=== PATIENT | male | born 1990 | race Caucasian/White ===

== ENCOUNTER → 2016-07-19 | Outpatient (CLI) | payer OTHER | LOC: RAD 10:13 | PROVIDERS: ATTEND Family Medicine | DX: R10.9 Unspecified abdominal pain (principal) | CPT/HCPCS: 74176 ==

== ENCOUNTER 2017-03-15 04:21 | Emergency (ER) | payer SELFPAY ==
[2017-03-15] MEDS ORDERED: NORMAL SALINE 1000 ML 1,000 ML IV ONE ×2 (04:47→06:41)
[2017-03-15] MEDS ORDERED: ONDANSETRON HCL INJ/PF 4 MG/2 ML SDV IV ONE (05:06)
[2017-03-15] MEDS ORDERED: KETOROLAC TROMETHAMINE INJ/PF 30 MG/1 ML SDV IV ONE (05:06)
[2017-03-15] MEDS ORDERED: TAMSULOSIN HCL 0.4 MG CAP.SR.24H PO ONE (05:06)
[2017-03-15 05:27] LABS: ABSOLUTE BASOPHILS # (AUTO) 0.1 10^3/uL (0.0-0.2); ABSOLUTE EOSINOPHILS # (AUTO) 0.2 10^3/uL (0.0-0.6); ABSOLUTE LYMPHOCYTES (AUTO) 2.1 10^3/uL (0.5-4.7); ABSOLUTE MONOCYTES (AUTO) 0.5 10^3/uL (0.1-1.4); ABSOLUTE NEUT (AUTO) 5.3 10^3/uL (1.7-8.2); EOSINOPHILS % (AUTO) 2.8 % (0-6); HEMATOCRIT 50.7 % (37.9-51.0); HEMOGLOBIN 18.2 g/dL (13.5-17.0); HGB HCT DIFFERENCE 3.9; LYMPHOCYTES % (AUTO) 25.2 % (13-45); MEAN CORPUSCULAR HEMOGLOBIN 31.3 pg (27.0-33.4); MEAN CORPUSCULAR HGB CONC 35.9 g/dL (32.0-36.0); MEAN CORPUSCULAR VOLUME 87 fl (80-97); MONOCYTES % (AUTO) 5.9 % (3-13); RED BLOOD COUNT 5.81 10^6/uL (4.35-5.55); RED CELL DISTRIBUTION WIDTH 12.9 % (11.5-14.0); SEGMENTED NEUTROPHILS % (AUTO) 65.1 % (42-78); WHITE BLOOD COUNT 8.2 10^3/uL (4.0-10.5)
[2017-03-15 05:38] LABS: ANION GAP 16 (5-19); BLOOD UREA NITROGEN 14 mg/dL (7-20); CALCIUM 10.8 mg/dL (8.4-10.2); CARBON DIOXIDE 27 mmol/L (22-30); CHLORIDE 99 mmol/L (98-107); CREATINE KINASE 110 U/L (55-170); CREATININE RESULT 0.83 mg/dL (0.52-1.25); GLUCOSE 102 mg/dL (75-110); POTASSIUM 4.7 mmol/L (3.6-5.0)
--- NOTE | 2017-03-15 05:43 | ER Document Report ---
ED General - General Chief Complaint: Flank Pain Stated Complaint: URINARY PAIN Time Seen by Provider: 03/15/17 04:45 TRAVEL OUTSIDE OF THE [place] IN LAST 30 DAYS: No - HPI Patient complains to provider of: Right flank pain urinary difficulty Notes: Patient coming in for evaluation of right flank pain urinary difficulty. Patient states flank pain ongoing for the last 4 days. Patient states difficult to in urination states that he had to self cath himself at home. Patient states history of kidney stones states last CAT scan showed 7 mm stone in the kidney. Patient states recently released from care home. Patient denies fevers chills denies nausea vomiting denies any penile drainage. Patient is resting currently upon my evaluation. - Related Data Allergies/Adverse Reactions: bee stings Allergy (Uncoded 03/15/17 04:24) Home Medications: Current Home Medications No Home Medications 03/15/17 [History] Past Medical History - Social History Smoking Status: Current Every Day Smoker Chew tobacco use (# tins/day): No Frequency of alcohol use: None Drug Abuse: None Family History: Reviewed & Not Pertinent Patient has suicidal ideation: No Patient has homicidal ideation: No Renal/ Medical History: Reports: Hx Kidney Stones. Denies: Hx Peritoneal Dialysis Past Surgical History: Reports: Hx Appendectomy, Hx Kidney (Renal Surgery) - KIDNEY STONES - Immunizations Hx Diphtheria, Pertussis, Tetanus Vaccination: Yes Review of Systems - Review of Systems Constitutional: No symptoms reported EENT: No symptoms reported Cardiovascular: No symptoms reported Respiratory: No symptoms reported Gastrointestinal: No symptoms reported Genitourinary: Hematuria, Retention Male Genitourinary: No symptoms reported Musculoskeletal: No symptoms reported Skin: No symptoms reported Hematologic/Lymphatic: No symptoms reported Neurological/Psychological: No symptoms reported -: Yes All other systems reviewed and negative Physical Exam - Vital signs Vitals: Temp Pulse Resp BP Pulse Ox 98.1 F 104 H 18 132/97 H 97 03/15/17 04:25 03/15/17 04:25 03/15/17 04:25 03/15/17 04:25 03/15/17 04:25 Interpretation: Normal - General General appearance: Appears well, Alert - HEENT Head: Normocephalic, Atraumatic Eyes: Normal Conjunctiva: Normal Cornea: Normal Eyelashes: Normal Pupils: Dilated - Reactive - Respiratory Respiratory status: No respiratory distress Chest status: Nontender Breath sounds: Normal Chest palpation: Normal - Cardiovascular Rhythm: Regular Heart sounds: Normal auscultation Murmur: No - Abdominal Inspection: Normal Distension: No distension Bowel sounds: Normal Tenderness: Nontender Organomegaly: No organomegaly - Back Back: Normal, Nontender - Extremities General upper extremity: Normal inspection, Nontender, Normal color, Normal ROM , Normal temperature General lower extremity: Normal inspection, Nontender, Normal color, Normal ROM , Normal temperature, Normal weight bearing. No: Chelita's sign - Neurological Neuro grossly intact: Yes Cognition: Normal Orientation: AAOx4 Farrell Coma Scale Eye Opening: Spontaneous Laquita Coma Scale Verbal: Oriented Laquita Coma Scale Motor: Obeys Commands Farrell Coma Scale Total: 15 Speech: Normal Motor strength normal: LUE, RUE, LLE, RLE Sensory: Normal - Psychological Associated symptoms: Normal affect, Normal mood - Skin Skin Temperature: Warm Skin Moisture: Dry Skin Color: Normal Course - Re-evaluation Re-evalutation: 03/15/17 05:43 We will get a CT scan to evaluate the patient. 03/15/17 07:25 CT scan does show a 9 mm kidney stone however this resides within the right kidney no obstructive uropathy. Patient's urine drug screen did return positive for opiates and amphetamines. More likely underlying cause of the patient's urinary retention will be the patient's amphetamine use. Patient was educated about side effects of doing illicit drugs patient is understanding will continue to hydrate with second liter fluid patient state feeling much better after fluids and ketorolac. Patient will be discharged after IV fluid infusion - Vital Signs Vital signs: Temp Pulse Resp BP Pulse Ox 98.1 F 64 16 122/68 99 03/15/17 08:00 03/15/17 08:00 03/15/17 08:00 03/15/17 08:00 03/15/17 08:00 - Laboratory Result Diagrams: 03/15/17 05:05 03/15/17 05:05 Laboratory results interpreted by me: 03/15/17 03/15/17 03/15/17 05:05 05:05 05:50 RBC 5.81 H Hgb 18.2 H Calcium 10.8 H Urine Urobilinogen 2.0 H Discharge - Discharge Clinical Impression: Flank pain Condition: Good Disposition: HOME, SELF-CARE Instructions: Flank Pain ([facility]) Additional Instructions: Your CT scan today shows a kidney stone approximately 9 mm in your right kidney however this stone is in the lower part your kidney should not be causing any problems. Kidney stones on cause pain nausea vomiting when he traveled to the ureter tube that goes from the kidney to the bladder. Her symptoms of urinary retention are more likely due to your amphetamine use. Also there is some stool retention within your colon which can be from your opiate use. I recommend to stop the use of these 2 substances. He may also take Tylenol Motrin for your pain please make sure to drink plenty water stay hydrated. I would recommend that she follow-up with [facility] if you like to receive help with your substance abuse Referrals: [facility] [Provider Group] - Follow up as needed [facility] [Provider Group] - Follow up as needed
--- NOTE | 2017-03-15 06:00 | RADIOLOGY REPORT (SQ) ---
EXAM DESCRIPTION: CT LTD RENAL STONE PROTOCOL ON COMPLETED DATE/TIME: 03/15/2017 5:36 am REASON FOR STUDY: right flank pain hx of stones COMPARISON: 06/21/2015. TECHNIQUE: CT scan of the abdomen and pelvis performed without intravenous or oral contrast. Images reviewed with lung, soft tissue, and bone windows. Reconstructed coronal and sagittal MPR images revi ewed. All images stored on PACS. All CT scanners at this facility use dose modulation, iterative reconstruction, and/or weight based d osing when appropriate to reduce radiation dose to as low as reasonably achievable (ALARA). [facility]: Dose Right [facility]: CareDose [facility]: Dose Right [facility]: Teradose 4D [facility]: [employer] RADIATION DOSE: Up-to-date CT equipment and radiation dose reduction techniques were employed. CTDIv ol: 4.9 mGy. DLP: 262 mGy-cm.mGy. LIMITATIONS: None. FINDINGS: LOWER CHEST: No significant findings. No nodules or infiltrates. NON-CONTRASTED LIVER, SPLEEN, ADRENALS: Evaluation limited by lack of IV contrast. No identified sign ificant masses. 2 subcentimeter low-attenuation foci of the right hepatic lobe likely benign not sig nificantly changed. PANCREAS: No masses. No peripancreatic inflammatory changes. GALLBLADDER: No identified stones by CT criteria. No inflammatory changes to suggest cholecystitis. RIGHT KIDNEY AND URETER: No suspicious masses. Assessment limited by lack of IV contrast. 0.[address] one. No hydronephrosis or hydroureter. LEFT KIDNEY AND URETER: No suspicious masses. Assessment limited by lack of IV contrast. No signifi cant calcifications. No hydronephrosis or hydroureter. AORTA AND RETROPERITONEUM: No aneurysm. No retroperitoneal masses or adenopathy. BOWEL AND PERITONEAL CAVITY: No obvious masses or inflammatory changes. No free fluid. APPENDIX: Normal. PELVIS, BLADDER, AND ABDOMINAL WALL:No abnormal masses. No free fluid. Bladder normal. BONES: No significant findings. OTHER: No other significant finding. IMPRESSION: No acute findings. 0.9 cm right renal stone. COMMENT: Quality ID # [id number]: Final reports with documentation of one or more dose reduction techniques (e.g., Automated exposure control, adjustment of the mA and/or kV according to patient size, use of iterative reconstruction technique) TECHNICAL DOCUMENTATION: JOB ID: [id number]- All Rights Reserved
[2017-03-15 06:21] LABS: AMORPHOUS SEDIMENT,URINE TRACE /HPF; APPEARANCE,URINE SLIGHTLY-CLOUDY; BILIRUBIN,URINE NEGATIVE (NEGATIVE); GLUCOSE, URINE NEGATIVE (NEGATIVE); KETONES,URINE NEGATIVE (NEGATIVE); LEUKOCYTE ESTERASE,URINE NEGATIVE (NEGATIVE); NITRITE,URINE NEGATIVE (NEGATIVE); PROTEIN,URINE NEGATIVE (NEGATIVE); URINE SPECIFIC GRAVITY 1.023
[2017-03-15 07:07] LABS: URINE BARBITURATES SCREEN NEGATIVE; URINE METHADONE SCREEN NEGATIVE; URINE OPIATES LOW UNCONFIRMED POSITIVE; URINE PHENCYCLIDINE SCREEN NEGATIVE
[2017-03-15 08:02] VITALS: BP 122/68
== END 2017-03-15 08:03 | disposition home or self-care (01) ==
LOC: ER 04:21
DX: N20.0 Calculus of kidney (principal); R10.9 Unspecified abdominal pain; R33.9 Retention of urine, unspecified; H57.04 Mydriasis; Z91.030 Bee allergy status; F17.200 Nicotine dependence, unspecified, uncomplicated; Z90.49 Acquired absence of other specified parts of digestive tract
CPT/HCPCS: 99284; 96361; 96374; 96375; 36415; 82550; 85025; 80048; 81001; 80307; 76380; J1885; J2405; J7030

== ENCOUNTER 2020-07-22 21:09 | Emergency (ER) | payer SELFPAY ==
[2020-07-22] MEDS ORDERED: NORMAL SALINE 1000 ML 1,000 ML IV ONE (22:45)
[2020-07-22] MEDS ORDERED: KETOROLAC TROMETHAMINE INJ/PF 30 MG/1 ML SDV IV ONE (22:45)
--- NOTE | 2020-07-22 22:49 | ER Document Report ---
ED General - General Chief Complaint: Chest Pain Stated Complaint: CHEST PAIN/RASH Notes: 30-year-old man smoker presents with about 3 hours of constant pressure-like re trosternal chest pain without radiation associated with shortness of breath that came on at rest without any aggravating or alleviating factors. Patient started on antibiotics for mild cellulitis on the face, but did not take first dose of antibiotics until after symptoms began. Patient denies any prior episodes, cardiac history, exertional chest pain, pleuritic chest pain, hypertension, hyperlipidemia, diabetes, premature cardiac history and family, sudden/early history and family, lower extremity edema, recent travel/trauma/surgery/immobilization, cancer history, cough, hemoptysis, D VT/PE/hypercoagulability history in self or family, trauma, syncope, back pain, abdominal pain, black or bloody stool, alcohol or other drug use or withdrawal TRAVEL OUTSIDE OF THE [place] IN LAST 30 DAYS: No - Related Data Allergies/Adverse Reactions: bee stings Allergy (Uncoded 03/15/17 04:24) Past Medical History - General Information source: Patient - Social History Smoking Status: Current Every Day Smoker Family History: Reviewed & Not Pertinent Renal/ Medical History: Reports: Hx Kidney Stones. Denies: Hx Peritoneal Dialysis Past Surgical History: Reports: Hx Appendectomy, Hx Kidney (Renal Surgery) - KIDNEY STONES - Immunizations Hx Diphtheria, Pertussis, Tetanus Vaccination: Yes Review of Systems - Review of Systems Notes: REVIEW OF SYSTEMS: CONSTITUTIONAL : Denies fever, chills, or sweats. EENT: Denies recent cold/sinus symptoms, denies throat pain CARDIOVASCULAR: + chest pain, -JASS RESPIRATORY: Denies cough, +shortness of breath. GASTROINTESTINAL: Denies abdominal pain, nausea/vomiting. GENITOURINARY: Denies difficulty urinating, painful urination. MUSCULOSKELETAL: Denies neck pain, back pain. SKIN: Denies rash or skin lesions. HEMATOLOGIC : Denies easy bruising or bleeding. LYMPHATIC: Denies swollen, enlarged glands. NEUROLOGICAL: Denies headache, denies change in gait. PSYCHIATRIC: Denies anxiety or stress or depression. Physical Exam - Vital signs Vitals: Temp Pulse Resp BP Pulse Ox 97.9 F 98 20 125/74 100 07/22/20 21:14 07/22/20 21:14 07/22/20 21:14 07/22/20 21:14 07/22/20 21:14 - Notes Notes: PHYSICAL EXAMINATION: GENERAL: Uncomfortable appearing young adult man lying in stretcher in no acute distress HEAD: Atraumatic, normocephalic. EYES: Pupils equal round and appropriate constriction, sclera anicteric, conjunctiva are normal. ENT: nares patent, moist mucous membranes. NECK: Normal range of motion, supple without lymphadenopathy LUNGS: Breath sounds clear to auscultation bilaterally and equal. No wheezes rales or rhonchi. HEART: Regular rate and rhythm without murmurs ABDOMEN: Soft, nontender, no guarding, no masses, no CVAT EXTREMITIES: Normal range of motion, no pitting or edema. No cyanosis. NEUROLOGICAL: Awake, alert, conversing appropriately, moves all extremities spontaneously. PSYCH: Normal mood, normal affect. SKIN: Warm, Dry, normal turgor, mild erythema to right nose Course - Re-evaluation Re-evalutation: 07/22/20 22:48 Was asked to go to evaluate patient by charge nurse Hanane cary RN Nelsy was concerned about patient seeming more short of breath than when he arrived. I immediately went to patient's bedside and evaluated him, mildly tremulous and uncomfortable appearing but clear lungs, normal voice, no oropharyngeal edema, n ormal pulse ox, vital signs remained stable. I ordered EKG and additional labs for ACS and PE rule out, fluids, and will continue to monitor closely. 07/22/20 23:53 Patient's EKG appears to have hyperacute T waves anteriorly and given his concerning story for ACS I had the EKG repeated after 10 minutes and it appeared slightly dynamic so I called the [facility] line [facility] and sent him the EKGs to evaluate. Ordered nitro sublingual. Patient's D-dimer also elevated so ordered CTA and patient is being taken to CTA currently. Received call back from Dr. Sanders at [facility] who is getting in touch with cardiology. Awaiting callback from cardiology. 07/23/20 00:06 Dr. Sanders called back, he discussed with cards interventionalist, thinks EKG is early repol and not ischemic, no transfer at this time 07/23/20 03:14 Repeated troponin approximately 6 hours after onset of chest pain and remains normal, repeat EKG was nondynamic, patient pain significantly improved after Toradol, no significant difference with nitro. Patient currently comfortable, patient's D-dimer was elevated so obtain CTA chest which showed no PE or dissection. Given that patient has no ACS risk factors other than smoking and heart score is 3 will discharge with cardiology follow-up outpatient. Gave extensive return to ED precautions which patient demonstrated understanding of. Will call Dr. Navarrete and give patient's information so that he can expedite close outpatient follow-up. Patient ready for discharge. - Vital Signs Vital signs: Temp Pulse Resp BP Pulse Ox 97.7 F 98 14 112/63 99 07/22/20 22:42 07/22/20 21:14 07/23/20 00:56 07/23/20 00:56 07/23/20 00:56 - Laboratory Results Result Diagrams: 07/22/20 22:46 07/22/20 22:46 Laboratory Results Interpreted: 07/22/20 07/22/20 07/22/20 22:46 22:46 22:46 WBC 13.7 H Absolute Neuts (auto) 8.9 H D-Dimer 3.97 H Sodium 134.8 L Chloride 96 L Carbon Dioxide 31 H ALT 57 H Critical Laboratory Results Reviewed: No Critical Results - Radiology Results Critical Radiology Results Reviewed: No Critical Results - EKG Interpretation by Me Additional EKG results interpreted by me: 07/23/20 03:16 Sinus rhythm, no significant ST elevation or depression, large precordial T waves possibly hyperacute T waves (presented to training instructor who felt that EKGs showed early repol) Repeat EKG: Sinus rhythm, no significant ST elevation or depression, large precordial T waves Discharge - Discharge Clinical Impression: Chest pain Qualifiers: Chest pain type: unspecified Qualified Code(s): R07.9 - Chest pain, unspecified Disposition: HOME, SELF-CARE Additional Instructions: Chest Pain of Unclear Cause The exact cause of your chest pain isn't clear. Fortunately, there is no evidence of an immediately dangerous medical condition. Further testing may be required to find the source of the pain. Most often, we find that this pain is coming from the chest wall -- the muscles or rib joints in the chest. But chest pain can come from the lung and lung lining, the esophagus, the heart valves or heart lining, and even the stomach or gallbladder. It is still possible that you could have a medical condition related to your heart that needs to be treated quickly so it is extremely important that you follow-up tomorrow with the dirt supervisor Dr. Fu. If you have any worsening pain, difficulty breathing, dizziness, fainting, confusion, black or bloody stool, uncontrolled vomiting, belly pain, or any other worsening or alarming symptoms return to the emergency department immediately. Prescriptions: Famotidine [Pepcid] 20 mg PO QAM 7 Days #7 tablet
[2020-07-22 23:01] LABS: ABSOLUTE BASOPHILS # (AUTO) 0.1 10^3/uL (0.0-0.2); ABSOLUTE EOSINOPHILS # (AUTO) 0.1 10^3/uL (0.0-0.6); ABSOLUTE LYMPHOCYTES (AUTO) 3.7 10^3/uL (0.5-4.7); ABSOLUTE NEUT (AUTO) 8.9 10^3/uL (1.7-8.2); BASOPHILS % (AUTO) 0.9 % (0-2); EOSINOPHILS % (AUTO) 0.4 % (0-6); HEMATOCRIT 45.9 % (37.9-51.0); HEMOGLOBIN 15.9 g/dL (13.5-17.0); LYMPHOCYTES % (AUTO) 26.6 % (13-45); MEAN CORPUSCULAR HEMOGLOBIN 30.1 pg (27.0-33.4); MEAN CORPUSCULAR HGB CONC 34.7 g/dL (32.0-36.0); MEAN CORPUSCULAR VOLUME 87 fl (80-97); PLATELET COUNT 284 10^3/uL (150-450); RED BLOOD COUNT 5.28 10^6/uL (4.35-5.55); RED CELL DISTRIBUTION WIDTH 12.6 % (11.5-14.0); SEGMENTED NEUTROPHILS % (AUTO) 65.1 % (42-78); TOTAL CELLS COUNTED % (AUTO) 100 %; WHITE BLOOD COUNT 13.7 10^3/uL (4.0-10.5)
[2020-07-22] MEDS ORDERED: ASPIRIN 81 MG TABLET, CHEWABLE PO ONE (23:07)
[2020-07-22 23:16] LABS: ALBUMIN 4.4 g/dL (3.5-5.0); ALKALINE PHOSPHATASE 74 U/L (38-126); ANION GAP 8 (5-19); ASPARTATE AMINO TRANSFERASE 32 U/L (17-59); BILIRUBIN,DIRECT 0.2 mg/dL (0.0-0.4); BILIRUBIN,TOTAL 0.7 mg/dL (0.2-1.3); BLOOD UREA NITROGEN 9 mg/dL (7-20); CARBON DIOXIDE 31 mmol/L (22-30); CHLORIDE 96 mmol/L (98-107); CREATINE KINASE 78 U/L (55-170); GLUCOSE 102 mg/dL (75-110); POTASSIUM 3.6 mmol/L (3.6-5.0); TOTAL PROTEIN 7.9 g/dL (6.3-8.2)
[2020-07-22 23:27] LABS: CREATINE KINASE MB 0.92 ng/mL (<4.55); TROPONIN I < 0.012 ng/mL
[2020-07-22 23:35] LABS: INTERNATIONAL RATION (INR) 0.95; PROTHROMBIN TIME 12.9 SEC (11.4-15.4)
[2020-07-22 23:36] LABS: PARTIAL THROMBOPLASTIN TIME 31.6 SEC (23.5-35.8)
[2020-07-22] MEDS ORDERED: NITROGLYCERIN 0.4 MG/TAB 25 TAB/BOTTLE SL PRN (23:37)
--- NOTE | 2020-07-22 23:50 | RADIOLOGY REPORT (SQ) ---
CLINICAL INDICATION: cp. Chest pain TECHNIQUE: A single portable AP view was obtained of the chest at 2310 hours. COMPARISON: None. FINDINGS: The cardiomediastinal silhouette is normal. The lungs are grossly clear. No evidence of effusion or pneumothorax. The visualized bones are unremarkable. IMPRESSION: No evidence of active intrathoracic disease.
--- NOTE | 2020-07-23 00:52 | RADIOLOGY REPORT (SQ) ---
EXAM DESCRIPTION: CT CHEST WITH INTRAVENOUS CONTRAST CLINICAL HISTORY: Chest pain and positive d-dimer COMPARISON: None available TECHNIQUE: CT of the chest was performed with intravenous contrast using pulmonary embolism protocol, followed by CTA of the pulmonary arterial vasculature, with 3D reconstruction of the pulmonary arterial vasculature. The patient was injected with 65 mL Omnipaque [address] exam was performed according to our departmental dose-optimization program, which includes one or more of the following dose reduction techniques: automated exposure control, adjustment of the mA and/or kV according to patient size, and/or use of iterative reconstruction technique. FINDINGS: There are no filling defects in the main pulmonary trunk, first order or the visualized lower order branches of the bilateral pulmonary arteries, to suggest pulmonary embolism. There is no evidence of clinically significant thoracic aortic aneurysm or thoracic aortic dissection. There is no evidence of clinically significant pericardial effusion. There are no airspace infiltrates, pleural effusions or pneumothoraces in the visualized lung hawkins. There is no pathological axillary, supraclavicular, mediastinal or hilar lymphadenopathy. Visualized osseous structures appear grossly intact. The visualized upper abdominal structures seen on the exam appear unremarkable. IMPRESSION: No CT evidence of acute pulmonary embolism.
[2020-07-23] MEDS ORDERED: SUCRALFATE 1 GM TABLET PO ONE (01:07)
[2020-07-23] MEDS ORDERED: MAG HYDROX/AL HYDROX/SIMETH SUSP 30 ML UDCUP PO ONE (01:07)
[2020-07-23] MEDS ORDERED: FAMOTIDINE 20 MG TABLET PO ONE (01:07)
[2020-07-23 03:17] VITALS: BP 117/65
--- NOTE | 2020-07-23 08:17 | EKG REPORT ---
SEVERITY:- ABNORMAL ECG - SINUS TACHYCARDIA RIGHT ATRIAL ABNORMALITY : Confirmed by: Baljeet Cantrell MD 23-Jul-2020 08:16:48
--- NOTE | 2020-07-23 08:17 | EKG REPORT ---
SEVERITY:- BORDERLINE ECG - SINUS RHYTHM : Confirmed by: Baljeet Cantrell MD 23-Jul-2020 08:16:16
== END 2020-07-23 03:31 | disposition home or self-care (01) ==
LOC: ER 21:09
DX: U07.1 COVID-19 (principal); R07.9 Chest pain, unspecified; R06.02 Shortness of breath; F17.200 Nicotine dependence, unspecified, uncomplicated; Z87.442 Personal history of urinary calculi
CPT/HCPCS: 93005; 99285; 96361; 96374; 36415; 82553; 82550; 85025; 85610; 85730; 0202U; 80053; 84484; 85379; 71045; 71275; 93010; J1885; J7030; C9803